=== PATIENT | female | born 1985 | race African-American/Black ===

== ENCOUNTER 2016-08-01 16:21 | Emergency (ER) | payer OTHER ==
[2016-08-01 16:34] VITALS: BP 110/81
--- NOTE | 2016-08-01 18:24 | UC ---
Throat Pain/Nasal Carlos A HPI - HPI Summary HPI Summary: TWO WEEKS OF WORSENING SINUS CONGESTION AND PRESSURE, CAUSING PRODUCTIVE COUGH. NO FEVER. - History of Current Complaint Chief Complaint: UCRespiratory Stated Complaint: CHEST CONGESTION,COUGH Time Seen by Provider: 08/01/16 18:06 Hx Obtained From: Patient Hx Last Menstrual Period: one week ago Onset/Duration: Gradual Onset, Lasting Weeks, Still Present Severity: Moderate Cough: Productive Associated Signs & Symptoms: Positive: Hoarseness, Sinus Discomfort, Nasal Discharge - Epiglottits Risk Factors Epiglottis Risk Factors: Negative - Allergies/Home Medications Allergies/Adverse Reactions: Allergies Allergy/AdvReac Type Severity Reaction Status Date / Time No Known Allergies Allergy Verified 08/01/16 16:35 Home Medications: Home Medications Phenylephrine-Guaifenesin [Mucus Relief PE 10-400 mg] 08/01/16 [History] PMH/Surg Hx/FS Hx/Imm Hx Previously Healthy: Yes Endocrine History Of: Denies: Diabetes, Thyroid Disease Cardiovascular History Of: Denies: Cardiac Disorders, Hypertension Respiratory History Of: Denies: COPD, Asthma GI/ History Of: Denies: Ulcer - Surgical History Surgical History: Yes Surgery Procedure, Year, and Place: 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 ( [facility]) - Family History Known Family History: Negative: Cardiac Disease, Diabetes - NO HX OF CARDIAC OR DM MOTHER IS "ALLERGIC", Respiratory Disease - Social History Occupation: Employed Full-time Lives: With Family Alcohol Use: Occasionally Substance Use Type: None Smoking Status (MU): Never Smoked Tobacco Have You Smoked in the Last Year: No Review of Systems Constitutional: Negative Skin: Negative Eyes: Negative ENT: Nasal Discharge Respiratory: Cough Cardiovascular: Negative Gastrointestinal: Negative Genitourinary: Negative Motor: Negative Neurovascular: Negative Musculoskeletal: Negative Neurological: Negative Psychological: Negative All Other Systems Reviewed And Are Negative: Yes Physical Exam Triage Information Reviewed: Yes Appearance: No Pain Distress, Well-Nourished, Ill-Appearing Vital Signs: Initial Vital Signs Temp 98.2 F 08/01/16 16:32 Pulse 91 08/01/16 16:32 Resp 18 08/01/16 16:32 BP 110/81 08/01/16 16:32 Pulse Ox 100 08/01/16 16:32 Vital Signs Reviewed: Yes Eye Exam: Normal ENT: Positive: Hearing grossly normal, Pharyngeal erythema, TM bulging, TM dull Dental Exam: Normal Neck exam: Normal Neck: Positive: Supple, Nontender, No Lymphadenopathy. Negative: Nuchal Rigidity, Tenderness @ Respiratory Exam: Other - COUGH Respiratory: Positive: Chest non-tender, Lungs clear, Normal breath sounds, No respiratory distress, No accessory muscle use Cardiovascular Exam: Normal Cardiovascular: Positive: RRR, No Murmur, Pulses Normal Abdominal Exam: Normal Musculoskeletal Exam: Normal Musculoskeletal: Positive: Strength Intact, ROM Intact Neurological Exam: Normal Psychological Exam: Normal Psychological: Positive: Normal Response To Family Skin Exam: Normal Throat Pain/Nasal Course/Dx - Differential Dx/Diagnosis Differential Diagnosis/HQI/PQRI: Otitis Media, Pharyngitis, Sinusitis, URI Provider Diagnoses: SINUSITIS Discharge - Discharge Plan Condition: Stable Disposition: HOME Prescriptions: Amoxicillin/Clavulanate TAB* [Augmentin TAB 875*] 875 mg PO BID #20 tab Benzonatate CAP* [Tessalon 100 MG CAP*] 100 mg PO TID #15 cap Patient Education Materials: Sinusitis (ED) Forms: *Work Release Referrals: [facility]FERR[facility] [Outside] No Primary Care Phys,NOPCP [Primary Care Provider] -
== END 2016-08-01 18:25 | disposition home or self-care (01) ==
LOC: UCEAST 16:21
DX: J32.9 Chronic sinusitis, unspecified (principal)
CPT/HCPCS: 99212; G0463

== ENCOUNTER 2017-04-01 10:43 | Emergency (ER) | payer OTHER ==
[2017-04-01 11:10] VITALS: BP 124/88
--- NOTE | 2017-04-01 11:28 | UC ---
Throat Pain/Nasal Carlos A HPI - HPI Summary HPI Summary: Patient presents with sinus symptoms. She tells me that for the last 3 days she has had sinus pain/pressure/congestion. Yesterday she began to have a productive cough. Has been taking mucinex with no relief. She is going out of town tonight and is adamant that she needs an antibiotic. She denies fever, chills, SOB, chest pain, abdominal pain, N/V/D/C - History of Current Complaint Chief Complaint: UCGeneralIllness Stated Complaint: SINUS CONGESTION Time Seen by Provider: 04/01/17 11:23 Hx Obtained From: Patient Hx Last Menstrual Period: 03/21/17 Onset/Duration: Gradual Onset Severity: Moderate Cough: Productive - Allergies/Home Medications Allergies/Adverse Reactions: Allergies Allergy/AdvReac Type Severity Reaction Status Date / Time No Known Allergies Allergy Verified 04/01/17 11:10 Home Medications: Home Medications Pseudoephedrine-Guaifenesin [Mucinex D Maximum Strengt 120-1200 mg] 1 tab PO Q12HR PRN 04/01/17 [History Confirmed 04/01/17] PMH/Surg Hx/FS Hx/Imm Hx Previously Healthy: Yes - Surgical History Surgical History: Yes Surgery Procedure, Year, and Place: 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 ( [facility]) - Family History Known Family History: Negative: Cardiac Disease, Diabetes - NO HX OF CARDIAC OR DM MOTHER IS "ALLERGIC", Respiratory Disease - Social History Occupation: Employed Full-time Lives: With Family Alcohol Use: Occasionally Substance Use Type: None Smoking Status (MU): Never Smoked Tobacco Have You Smoked in the Last Year: No - Immunization History Most Recent Influenza Vaccination: NOT UTD Review of Systems Constitutional: Negative Skin: Negative Eyes: Negative ENT: Nasal Discharge, Sinus Congestion, Sinus Pain/Tenderness Respiratory: Cough Cardiovascular: Negative Gastrointestinal: Negative Neurological: Negative Psychological: Negative All Other Systems Reviewed And Are Negative: Yes Physical Exam Triage Information Reviewed: Yes Appearance: Well-Appearing, Well-Nourished Vital Signs: Initial Vital Signs Temp 98.6 F 04/01/17 11:06 Pulse 91 04/01/17 11:06 Resp 18 04/01/17 11:06 BP 124/88 04/01/17 11:06 Pulse Ox 99 04/01/17 11:06 Vital Signs Reviewed: Yes Eyes: Positive: Conjunctiva Clear. Negative: Conjunctiva Inflamed, Discharge ENT: Positive: Hearing grossly normal, Pharynx normal, Nasal congestion, Nasal drainage, TMs normal, Sinus tenderness, Uvula midline. Negative: Pharyngeal erythema, TM bulging, TM dull, TM red, Tonsillar swelling, Tonsillar exudate Neck: Positive: Supple, Nontender, No Lymphadenopathy Respiratory: Positive: Chest non-tender, Lungs clear, Normal breath sounds, No respiratory distress, No accessory muscle use Cardiovascular: Positive: RRR, No Murmur, Pulses Normal Neurological: Positive: Alert Psychological: Positive: Age Appropriate Behavior Skin: Negative: rashes Throat Pain/Nasal Course/Dx - Course Course Of Treatment: Sinusitis - Amoxicillin 7 days - Differential Dx/Diagnosis Differential Diagnosis/HQI/PQRI: Influenza, Mononucleosis, Otitis Media, Pharyngitis, Sinusitis, Tonsillitis, URI Provider Diagnoses: Sinusitis Discharge - Discharge Plan Condition: Stable Disposition: HOME Prescriptions: Amoxicillin PO (*) [Amoxicillin 500 MG CAP*] 500 mg PO Q12H #14 cap Patient Education Materials: Sinusitis (ED) Referrals: No Primary Care Phys,NOPCP [Primary Care Provider] - Additional Instructions: If you develop a fever, SOB, chest pain, new or worsening symptoms - please call your PCP or go to the ED. Please continue with mucinex and tylenol alternating with ibuprofen for any fever or discomfort.
--- OUTSIDE RECORDS SUMMARY | 2017-04-01 13:48 | XMS REPORT ---
:1985 External Reference #:[id number] Author Organization [facility] Address [address] [place] [address] Phone [phone] Care Team Providers Name Role Phone Ting Seo M.D. Care Team Information Network Support Specialist Unavailable Ting Seo M.D. Primary Care Physician Unavailable Payers Type Date Identification Numbers Payment Provider Subscriber Commercial Policy Number: [id number] [employer] Group Number: [id number] [id number] Group Name: [id number] [address] [place] [address] PayID: [id number] Problems Date Description Provider Status Onset: 03/07/2011 Enlargement of tonsil or adenoid Oral Pride M.D. 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 Cigarette Use Never Smoked Cigarettes Cigars Never Smoked Cigars Pipe Never Smoked A Pipe Smokeless Tobacco Never Used Smokeless Tobacco ETOH Use Currently occasionally consumes alcohol Smoking Patient has never smoked Allergies, Adverse Reactions, Alerts Date Description Reaction Status Severity Comments 03/07/2011 NKDA active Medications Medication Date Status Form Strength Qnty SIG Indications Ordering Provider Ipratropium 03/11/ Active Solution 0.06% 3units 2 sprays J30.0 Oral Whitaker 2016 in each Strominge nostril 4 r, M.D. times a day as needed for rhinitis Multivitamin 00// Active Tablets Unknown Adult 0000 No Active 03/11/ Hx Unknown Medications 2017 - 2016 Ibuprofen /00/ Hx Unknown - 2015 Prednisone /00/ Hx Unknown 2015 Flonase / Hx Suspension 50mcg/Act 1units 1 puffs Unknown 0000 - both side 05/03/ twice per 2016 day Iron / Hx Self - 2016 Vitamin B 12 / Hx Self - 2016 Calcium 500 / Hx Self - 2016 Echinacea / Hx Unknown - 2015 Multiple / Hx Self Supplements - 2016 Vital Signs Date Vital Result Comment 03/11/2017 BP Systolic 119 mmHg BP Diastolic 87 mmHg Heart Rate 83 /min Respiratory Rate 17 /min Weight 215.00 lb Weight in kg's 97.524 Height 66 inches 5'6" Height in cm's 167.6 cm BMI (Body Mass Index) 34.7 kg/m2 05/03/2015 BP Systolic 109 mmHg BP Diastolic 72 mmHg Heart Rate 85 /min Respiratory Rate 17 /min Weight 222.00 lb Weight in kg's 100.699 Height 66 inches 5'6" Height in cm's 167.6 cm BMI (Body Mass Index) 35.8 kg/m2 03/07/2011 BP Systolic 110 mmHg BP Diastolic 79 mmHg Heart Rate 69 /min Respiratory Rate 16 /min Weight 207.00 lb Weight in kg's 93.895 Height 65 inches 5'5" Height in cm's 165.1 cm BMI (Body Mass Index) 34.4 kg/m2 Results Description No Information Procedures Description No Information Encounters Type Date Location Provider CPT E/M Dx Office Visit 03/11/2017 10:00a [place] 04/15/07 Oral Levi 52542 J30.0 [facility] Pride Office Visit 05/03/2015 9:30a [place] 04/15/07 Oral Levi 46874 H92.03 [facility] Pride J31.0 Office Visit 03/07/2011 2:00p [place] 04/15/07 Oral Pride [id number] 474.10 [facility] Plan of Care 03/11/2017 - Oral Pride M.D.J30.0 Vasomotor rhinitisNew Medication: Ipratropium [place] 0.06 %Comments:What I think is happening is that the patient has vasomotor rhinitis. We had talked about this before. Wheat happens is that when she goes out in the cold her nose is viola sensitive,. It swells and runsand the congestion causes headache. She grew up in [place] and moving up here her nose is reactive to thecold. My recommendation is to use Ipratropium bromide before she goes out in the cold. this might help. It is a very safe medication that can be sued as needed multiple times per day.
== END 2017-04-01 11:36 | disposition home or self-care (01) ==
LOC: UCEAST 10:43
DX: J32.9 Chronic sinusitis, unspecified (principal); Z72.89 Other problems related to lifestyle
CPT/HCPCS: 99212; G0463

== ENCOUNTER 2018-05-14 19:42 | Emergency (ER) | payer OTHER ==
[2018-05-14 19:59] VITALS: BP 127/89
--- NOTE | 2018-05-14 20:22 | UC ---
Minor Trauma HPI - HPI Summary HPI Summary: 33-year-old female presents with complaints of left shoulder and left hip pain after slipping and falling on a wet floor in a restaurant around 5 PM today. States has some tenderness on both anterior and posterior left shoulder as well as over the left iliac crest. States she is having a mild tingling sensation down her left arm into her hands and fingers. She was able to ambulate and bear weight immediately after the injury as well as in the clinic. States she did not hit her head or lose consciousness. Denies headache, dizziness or vertigo, neck pain, back pain, extremity weakness or numbness, chest pain, palpitations, shortness of breath, abdominal pain, nausea, or vomiting. - History of Current Complaint Chief Complaint: UCTrauma Stated Complaint: LEFT SIDE INJURY FROM A FALL Time Seen by Provider: 05/14/18 20:02 Hx Obtained From: Patient Hx Last Menstrual Period: [id number] Pain Intensity: 7 - Allergies/Home Medications Allergies/Adverse Reactions: Allergies Allergy/AdvReac Type Severity Reaction Status Date / Time No Known Allergies Allergy Verified 05/14/18 19:59 Home Medications: Home Medications Multivitamin [Multivitamins] 1 cap PO DAILY 05/14/18 [History Confirmed 05/14/18 ] PMH/Surg Hx/FS Hx/Imm Hx Previously Healthy: Yes - Denies significant PMH - Surgical History Surgical History: Yes Surgery Procedure, Year, and Place: 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 ( [facility]) - Family History Known Family History: Positive: Non-Contributory - Social History Occupation: Employed Full-time Lives: With Family Alcohol Use: Occasionally Substance Use Type: None Smoking Status (MU): Never Smoked Tobacco Have You Smoked in the Last Year: No - Immunization History Most Recent Influenza Vaccination: NOT UTD Review of Systems All Other Systems Reviewed And Are Negative: Yes Constitutional: Positive: Negative Skin: Negative: Bruising Respiratory: Negative: Shortness Of Breath, Cough Cardiovascular: Negative: Palpitations, Chest Pain Gastrointestinal: Negative: Abdominal Pain, Vomiting, Diarrhea, Nausea Genitourinary: Positive: Negative Motor: Negative: Weakness Neurovascular: Positive: Other - Tingling left arm, hand, fingers. Negative: Decreased Sensation Musculoskeletal: Positive: Other: - See HPI Neurological: Positive: Negative Is Patient Immunocompromised?: No Physical Exam - Summary Physical Exam Summary: GENERAL APPEARANCE: Well developed, obese, alert and cooperative, and appears to be in no acute distress. HEAD: Atraumatic. normocephalic. EYES: PERRL, EOM intact. Vision is grossly intact. NECK: Neck supple, non-tender. CARDIAC: Normal S1 and S2. No S3, S4 or murmurs. Rhythm is regular. There is no peripheral edema, cyanosis or pallor. Extremities are warm and well perfused. Capillary refill is less than 2 seconds. Peripheral pulses intact. LUNGS: Clear to auscultation without rales, rhonchi, wheezing or diminished breath sounds. ABDOMEN: Positive bowel sounds. Soft, nondistended, nontender. No guarding or rebound. No masses or hepatosplenomegally. MUSKULOSKELETAL: Tenderness to left shoulder over the AC joint. Full ROM with some pain especially with abduction and internal rotation. No gross deformity. Circulation and sensation intact distally. Tender over the left iliac crest without crepitus or gross deformity. BACK: Examination of the spine reveals normal gait and posture, no spinal deformity or tenderness, decreased range of motion or muscular spasm. NEUROLOGICAL: Strength and sensation symmetric and intact. SKIN: Skin normal color, texture and turgor with no lesions or eruptions. Triage Information Reviewed: Yes Vital Signs: Initial Vital Signs Temp 98.6 F 05/14/18 19:51 Pulse 80 05/14/18 19:51 Resp 16 05/14/18 19:51 BP 127/89 05/14/18 19:51 Pulse Ox 100 05/14/18 19:51 Vital Signs Reviewed: Yes Diagnostics - Radiology No standard instances Radiology Interpretation Completed By: ED Physician - No acute fracture or dislocation Minor Trauma Course/Dx - Course Course Of Treatment: 33-year-old female presents with complaints of left shoulder and left hip pain after slipping and falling on a wet floor in a restaurant around 5 PM today. States has some tenderness on both anterior and posterior left shoulder as well as over the left iliac crest. States she is having a mild tingling sensation down her left arm into her hands and fingers. She was able to ambulate and bear weight immediately after the injury as well as in the clinic. States she did not hit her head or lose consciousness. Denies headache, dizziness or vertigo, neck pain, back pain, extremity weakness or numbness, chest pain, palpitations, shortness of breath, abdominal pain, nausea, or vomiting. Afebrile. VSS. Exam revealed an adult female in no acute distress. Exam revealed tenderness to left shoulder over the AC joint. Full ROM with some pain especially with abduction and internal rotation. No gross deformity. Circulation and sensation intact distally. Tender over the left iliac crest without crepitus or gross deformity. Remainder of exam unremarkable. X-rays showed no acute fractures or dislocations. She was given a dose of naproxen for pain management and given a prescription. She was placed in a sling for support and comfort. Recommend symptomatic treatment for left shoulder sprain and left hip contusion. She is to follow up with orthopedic surgery if no improvement in symptoms. Anticipatory guidance and warning symptoms reviewed with patient. Verbalizes understanding and agrees with POC. - Differential Dx/Diagnosis Differential Diagnosis/HQI/PQRI: Contusion(s), Fracture, Dislocation, Sprain Provider Diagnosis: Sprain of left shoulder, Contusion of left hip Discharge - Sign-Out/Discharge Documenting (check all that apply): Patient Departure All imaging exams completed and their final reports reviewed: No - Discharge Plan Condition: Stable Disposition: HOME Prescriptions: Naproxen [Naproxen 500 mg tab] 500 mg PO Q12HR #30 tablet Patient Education Materials: How to Use a Sling (ED), Shoulder Sprain (ED), Hip Contusion (ED) Referrals: No Primary Care Phys,NOPCP [Primary Care Provider] - Jose Alberto Mclaughlin MD [Medical Doctor] - 5 Days (If no improvement in symptoms.) Additional Instructions: The x-rays performed in the clinic tonight showed no evidence of fracture. The x -rays will be reviewed by the radiologist tomorrow and we will contact you if they see anything that changes our plan of care. I suspect that you have a left shoulder sprain and contusion (bruise) of the left hip. Rest the shoulder as much as possible. Use the sling provided to you for support for the next 2 days. Be sure to remove your arm from the sling every couple of hours to do some gentle range of motion exercises of the shoulder. After 2 days do not use the sling to avoid having the shoulder freeze up. Apply ice to the affected areas for 15-20 minutes at least 4 times a day to help with pain and swelling. Take naproxen 500 mg every 12 hours with food for the next 5-7 days then may take as needed. Follow up with orthopedic surgery in 5 days if no improvement of symptoms. Call for an appointment. Seek immediate medical attention in the emergency room if you have severe pain that is not managed with your pain medication, you have weakness or loss of sensation in the arm, hand, finger, leg, foot, or toes, you are unable to walk or bear weight, or have any worsening of symptoms. - Billing Disposition and Condition Condition: STABLE Disposition: Home
[2018-05-14] MEDS ORDERED: Naproxen TAB* 250 MG PO ONE ×2 (20:30→21:01)
--- NOTE | 2018-05-15 07:29 | UC ---
- EKG/XRAY/CT Xray Comments: xrs c/w calcific tendonitis Course/Dx - Diagnoses Provider Diagnoses: Sprain of left shoulder, Contusion of left hip Discharge - Sign-Out/Discharge Documenting (check all that apply): Post-Discharge Follow Up All imaging exams completed and their final reports reviewed: Yes - Discharge Plan Condition: Stable Disposition: HOME Prescriptions: Naproxen [Naproxen 500 mg tab] 500 mg PO Q12HR #30 tablet Patient Education Materials: How to Use a Sling (ED), Shoulder Sprain (ED), Hip Contusion (ED) Referrals: Jose Alberto Mclaughlin MD [Medical Doctor] - 5 Days (If no improvement in symptoms.) No Primary Care Phys,NOPCP [Primary Care Provider] - Additional Instructions: The x-rays performed in the clinic tonight showed no evidence of fracture. The x -rays will be reviewed by the radiologist tomorrow and we will contact you if they see anything that changes our plan of care. I suspect that you have a left shoulder sprain and contusion (bruise) of the left hip. Rest the shoulder as much as possible. Use the sling provided to you for support for the next 2 days. Be sure to remove your arm from the sling every couple of hours to do some gentle range of motion exercises of the shoulder. After 2 days do not use the sling to avoid having the shoulder freeze up. Apply ice to the affected areas for 15-20 minutes at least 4 times a day to help with pain and swelling. Take naproxen 500 mg every 12 hours with food for the next 5-7 days then may take as needed. Follow up with orthopedic surgery in 5 days if no improvement of symptoms. Call for an appointment. Seek immediate medical attention in the emergency room if you have severe pain that is not managed with your pain medication, you have weakness or loss of sensation in the arm, hand, finger, leg, foot, or toes, you are unable to walk or bear weight, or have any worsening of symptoms. - Billing Disposition and Condition Condition: STABLE Disposition: Home
== END 2018-05-14 21:27 | disposition home or self-care (01) ==
LOC: UCEAST 19:42
DX: S43.401A Unspecified sprain of right shoulder joint, initial encounter (principal); S70.02XA Contusion of left hip, initial encounter; W01.0XXA Fall on same level from slipping, tripping and stumbling without subsequent striking against object, initial encounter; Y92.511 Restaurant or cafe as the place of occurrence of the external cause
CPT/HCPCS: 99213; A9270-GY; G0463

== ENCOUNTER 2019-02-26 09:06 | Day surgery (SDC) | payer OTHER ==
[~2019-02-26 09:06] MED LIST: Acetaminophen TAB* 325 MG ONE; Buffered Lidocaine 1% SYRIN* 1 ML/SYRINGE INTRADERM ONE; Famotidine IV* 10 MG/ML 2 ML (20 mg) IV ONE; Lactated Ringers 1000 ML Bag* 1,000 ML IV SCH
[2019-02-26] MEDS ORDERED: ceFAZolin 2 GM in NS PREMIX(*) 2 GM/100 ML BAG IVPB ONE (09:13)
[2019-02-26] MEDS ORDERED: Gabapentin CAP(*) 300 MG ONE (09:13)
[2019-02-26] MEDS: Gabapentin CAP(*) 300 MG PO ONE ×2 (09:14→09:33)
[2019-02-26] MEDS: Acetaminophen TAB* 325 MG PO ONE ×2 (09:14→09:32)
[2019-02-26] MEDS ORDERED: Bupivacaine 0.5% SDV PF* 30ML VIAL ONE (09:20)
[2019-02-26] MEDS ORDERED: Lidocaine 1% INJ* 10 MG/ML 30 ML SDV ONE (09:20)
[2019-02-26] MEDS ORDERED: Dexamethasone IV* 4 MG/ML 1 ML (4 MG) ONE ×2 (09:20→09:56)
[2019-02-26] MEDS ORDERED: Midazolam* 1 MG/ML 2 ML VIAL (2 MG) ONE ×2 (09:31→09:57)
[2019-02-26] MEDS ORDERED: fentaNYL* 50 MCG/ML 2 ML VIAL (100 MCG VIAL) ONE (09:31)
[2019-02-26] MEDS ORDERED: Acetaminophen IV 1GM/100ML * 100 ML ONE (09:32)
[2019-02-26] MEDS ORDERED: Ondansetron INJ* 2 MG/ML VIAL ONE (09:56)
[2019-02-26] MEDS ORDERED: Lidocaine 2% PF * 5 ML VIAL ONE (09:56)
[2019-02-26] MEDS ORDERED: Propofol* 10 MG/ML 20 ML BTL ONE (09:56)
[2019-02-26] MEDS ORDERED: Ketorolac INJ* 30 MG/ML 1 ML VIAL ONE (09:56)
[2019-02-26] MEDS ORDERED: Midazolam* 1 MG/ML 5 ML VIAL (5 MG) ONE (09:57)
[2019-02-26] MEDS ORDERED: oxyCODONE TAB* 5 MG TAB PO PRN (10:30)
[2019-02-26] MEDS ORDERED: Naloxone* 0.4 MG/ML 1 ML VIAL IV PRN (10:30)
[2019-02-26] MEDS ORDERED: Ondansetron INJ* 2 MG/ML VIAL IV PRN (10:30)
[2019-02-26] MEDS ORDERED: diPHENhydraMINE IV* 50 MG/ML 1 ml VIAL (BENADRYL) IV PRN (10:30)
[2019-02-26] MEDS ORDERED: fentaNYL* 50 MCG/ML 2 ML VIAL (100 MCG VIAL) IV PRN (10:30)
[2019-02-26] MEDS ORDERED: DiMENhydriNATE IV* 50 MG/ML VIAL IV PUSH PRN (10:30)
[2019-02-26 12:29] VITALS: BP 122/58
--- NOTE | 2019-02-26 13:34 | OP ---
DATE OF OPERATION: 02/26/19 - [facility] DATE OF : 83 SURGEON: Omar Brady DPM [employer]CH[employer]IC: None. PRE-OP DIAGNOSIS: Painful bunion deformity, right foot. POST-OP DIAGNOSIS: Painful bunion deformity, right foot. OPERATIVE PROCEDURE: Bunionectomy with closing base wedge first metatarsal osteotomy on the right foot. PATHOLOGY: Degenerative bone. ANESTHESIA: MAC with local. HEMOSTASIS: Pneumatic ankle tourniquet. ESTIMATED BLOOD LOSS: Less than 10 cc. MATERIALS: Two of the 3.0 mm cannulated screws and one associated washer from the screw set. INDICATIONS: The patient with chronic right forefoot pain and deformity with bunion deformity causing pain when walking, wearing shoes, and she opts for surgery at this time to attempt to decrease the pain, and improve her function and ability to comfortably improve her function and comfortably be able to wear closed shoes. DESCRIPTION OF PROCEDURE: The patient was brought to the operating room, placed in the operating room table in a supine position. The anesthesia department administered IV sedation and a peripheral nerve block was performed about the right foot with a 1:1 mixture of 1% lidocaine plain and 0.5% Marcaine plain. The right foot was then prepped with a standard Betadine prep and draped in the sterile fashion. The right foot was exsanguinated with an Esmarch bandage and a pneumatic ankle tourniquet was inflated to 250 mmHg about a well-padded right ankle. Attention was directed to the dorsal medial aspect of the right great toe joint where a curvilinear incision was made. The incision was deepened through subcutaneous tissues with care being taken to retract the neurovascular structures and cauterize superficial bleeders as needed. Next, an inverted L capsular incision was made and allowed for exposure of the joint. There was noted to be hypertrophic bone at the medial aspect of the first metatarsal head. Next, dissection was carried down into the first metatarsal space where a traditional lateral release was performed and additionally the extensor hallucis brevis tendon was identified and transected. A McGlamry elevator was needed to free plantar and lateral adhesions of the sesamoid apparatus and is being done. There is adequate release of the lateral capsular structures. The medial eminence of the first metatarsal head was resected with sagittal saw and managed to preserve the sagittal groove. The resultant bone was sent off the field as specimen. The power dayanna was used to smooth rough edges. The surgical site was flushed with copious amounts of normal sterile saline. Next, the periosteal tissues were reflected off for exposure of the first metatarsal and a closing base wedge osteotomy was performed near the base of the first metatarsal. The proximal medial hinge was maintained and the resultant wedge was resected and the osteotomy was reduced and secured with the bone clamp. The position was checked with C-arm and then 2 of the wires from the Kelin set were placed for temporary fixation in screw placement guides. Again, the position was assessed with C-arm. Next, using a standard technique, two of the cannulated 3.0 Kelin cannulated screws were placed and it was determined that a washer would be beneficial to minimize the pull through to the angle of the more distal screw. The temporary fixations were removed. The osteotomy was inspected and found to be solid with no detectable motion. Correction and fixation was assessed with the C-arm. Portion of the capsular tissues medially were resected and the capsulorraphy which were redundant and immediate capsulorraphy was performed, and the capsular and periosteal tissues were reapproximated and secured with 2-0 Vicryl holding the hallux in rectus position. Subcutaneous tissues were reapproximated with 4-0 Vicryl and the skin was closed with 5-0 nylon. 12 mg of dexamethasone phosphate was infiltrated about the surgical site and the incision was dressed with Xeroform gauze. Mild decompressive dressings applied with 4 x 4 gauze, Stone and a light Coban wrap. The pneumatic ankle tourniquet was deflated about the right ankle and a prompt hyperemic response was notable in all 5 digits of the patient's right foot. Having appeared to tolerate the procedures and anesthesia well, the patient was transported via cart from the operating room to recovery in satisfactory condition with capillary refill less than 3 seconds to all digits of the right foot. [id number]/[facility] #: [id number] MTDD
== END 2019-02-26 12:15 | disposition home or self-care (01) ==
LOC: OREAST 09:06
PROVIDERS: ATTEND Podiatrist Foot Surgery
DX: M21.611 Bunion of right foot (principal); M20.11 Hallux valgus (acquired), right foot; M20.5X1 Other deformities of toe(s) (acquired), right foot
CPT/HCPCS: 76000; 81025; 88304; 88311; A9270-GY; C1713; C1776; J0690; J1100; J1885; J2250; J2405; J2704; J3010; J3490